=== PATIENT | female | born 1960 | race Caucasian/White ===

== ENCOUNTER 2017-03-11 15:20 | Inpatient (IN) | payer MEDICAID, OTHER ==
[~2017-03-11] VITALS: Ht 177.8 cm; Wt 78.0 kg
[~2017-03-11 15:20] MED LIST: ARIP2TAB3; OLAN2.5T3; VENL50TA2
[2017-03-11 15:45] LABS: BASOPHILS % (AUTO) 0.4 % (0.0-2.0); EOSINOPHILS % (AUTO) 0.2 % (0.0-6.0); HEMATOCRIT 42 % (33-45); HEMOGLOBIN 14.2 g/dL (11.5-14.8); LYMPHOCYTES # (AUTO) 1.9 /CMM (0.8-4.8); LYMPHOCYTES % (AUTO) 19.9 % (20.0-44.0); MEAN CORPUSCULAR HEMOGLOBIN 29 PG (26.0-33.0); MEAN CORPUSCULAR HGB CONC 34 g/dl (31.0-36.0); MEAN CORPUSCULAR VOLUME 85 fL (82-100); MONOCYTES # (AUTO) 0.7 /CMM (0.1-1.30); MONOCYTES % (AUTO) 7.7 % (2.0-12.0); NEUTROPHILS # (AUTO) 7.1 /CMM (1.8-8.9); NEUTROPHILS % (AUTO) 71.8 % (43.0-81.0); PLATELET COUNT (AUTO) 341 /CMM (150-450); RDW COEFFICIENT OF VARIATION 13.1 (11.5-15.0); RED BLOOD CELL COUNT(AUTO) 4.94 MIL/uL (4.0-5.2); WHITE BLOOD COUNT (AUTO) 9.7 K/uL (4.3-11.0)
[2017-03-11 15:55] LABS: CALCIUM, SERUM 10.3 mg/dL (8.5-10.1); CARBON DIOXIDE 24 mmol/L (21-32); CHLORIDE 102 mmol/L (98-107); CREATININE 0.9 mg/dL (0.6-1.3); GLUCOSE 118 mg/dL (74-106); POTASSIUM 4.3 mmol/L (3.5-5.1); SODIUM SERUM 136 mmol/L (136-145); UREA NITROGEN, BLOOD 18 mg/dL (7-18)
[2017-03-11 16:01] LABS: ACETAMINOPHEN 0 ug/ml (10-30); ALANINE AMINOTRANSFERASE 26 U/L (12-78); ALBUMIN 4.2 g/dL (3.4-5.0); ALCOHOL, BLOOD < 3 mg/dL (0-0); ALKALINE PHOSPHATASE 96 U/L (46-116); ASPARTATE AMINOTRANSFERASE 16 U/L (15-37); BILIRUBIN,TOTAL 0.2 mg/dL (0.2-1.0); SALICYLATE 5.7 mg/dL (2.8-20.0); TOTAL PROTEIN, SERUM 8.9 g/dL (6.4-8.2)
[2017-03-11] MEDS ORDERED: ACTIVATED CHARCOAL 25 GM/120 ML TUBE PO STA (16:36)
[2017-03-11] MEDS ORDERED: CHARCOAL/SORBITOL SOLUTION 25 G/120 ML TUBE ONE (16:39)
--- NOTE | 2017-03-11 17:49 | NUR ---
PAGED EPIC FOR PANEL
[2017-03-11 17:52] LABS: APPEARANCE,URINE Cloudy (CLEAR); BILIRUBIN,URINE SMALL (NEGATIVE); BLOOD, URINE Small Ery/uL (NEGATIVE); COLOR,URINE Yellow (YELLOW); KETONES,URINE 15 (NEGATIVE); LEUKOCYTE ESTERASE ,URINE Negative (NEGATIVE); NITRITE, URINE Negative (NEGATIVE); PH,URINE 5.5 (5.0-8.0); PROTEIN,URINE 30 mg/dl (NEGATIVE); UGLUCOSE Negative (NEGATIVE); UROBILINOGEN,URINE 0.2 EU/dL (0.2)
--- NOTE | 2017-03-11 17:59 | NUR ---
CALLED NURSE SUP FOR TELE BED
[2017-03-11 18:12] LABS: BACTERIA,URINE Few /HPF (None Seen); MUCUS,URINE Moderate /LPF (None Seen); SQUAMOUS EPITHELIAL CELL,UR Moderate /HPF (None Seen); URINE AMORPHOUS URATE Moderate /HPF (None Seen); WBC,URINE 0-2 /HPF (0-3)
[2017-03-11] MEDS ORDERED: IV NS 0.9% 1,000 ML IV PRN ×2 (18:15→20:00)
[2017-03-11] MEDS ORDERED: ACETAMINOPHEN 325 MG TABLET PO PRN ×2 (18:30→20:00)
[2017-03-11] MEDS ORDERED: MAGNESIUM HYDROXIDE 30 ML UDC PO PRN ×2 (18:30→20:00)
[2017-03-11] MEDS ORDERED: ONDANSETRON HCL/PF 4 MG/2 ML VIAL IVP PRN ×2 (18:30→20:00)
[2017-03-11] MEDS ORDERED: ZOLPIDEM TARTRATE 5 MG TABLET PO PRN ×2 (18:30→20:00)
[2017-03-11] MEDS ORDERED: ENOXAPARIN SODIUM 40 MG/0.4 ML DISP.SYRIN SQ SCH ×2 (18:30→21:00)
[2017-03-11] MEDS ORDERED: HYDROCODONE/APAP 5/325MG 1 EACH TABLET PO PRN ×2 (18:30→20:00)
[2017-03-11] MEDS ORDERED: MAG HYDROX/AL HYDROX/SIMETH 30 ML UDC PO PRN ×2 (18:30→20:00)
[2017-03-11] MEDS ORDERED: Z GUARD REMEDY 2 OZ OINT TP PRN ×2 (18:30→20:00)
[2017-03-11 18:43] LABS: BASOPHILS # (AUTO) 0.3 /CMM (0.0-0.2); BASOPHILS % (AUTO) 3.1 % (0.0-2.0); EOSINOPHILS # (AUTO) 0.1 /CMM (0.0-0.7); EOSINOPHILS % (AUTO) 0.6 % (0.0-6.0); HEMATOCRIT 43 % (33-45); HEMOGLOBIN 14.7 g/dL (11.5-14.8); LYMPHOCYTES # (AUTO) 2.4 /CMM (0.8-4.8); LYMPHOCYTES % (AUTO) 25.5 % (20.0-44.0); MEAN CORPUSCULAR HEMOGLOBIN 29 PG (26.0-33.0); MEAN CORPUSCULAR HGB CONC 34 g/dl (31.0-36.0); MEAN CORPUSCULAR VOLUME 84 fL (82-100); MONOCYTES # (AUTO) 0.5 /CMM (0.1-1.30); MONOCYTES % (AUTO) 5.3 % (2.0-12.0); NEUTROPHILS # (AUTO) 5.9 /CMM (1.8-8.9); NEUTROPHILS % (AUTO) 65.5 % (43.0-81.0); PLATELET COUNT (AUTO) 396 /CMM (150-450); RDW COEFFICIENT OF VARIATION 13.2 (11.5-15.0); RED BLOOD CELL COUNT(AUTO) 5.12 MIL/uL (4.0-5.2); WHITE BLOOD COUNT (AUTO) 9.2 K/uL (4.3-11.0)
[2017-03-11] MEDS ORDERED: LORAZEPAM INJ 2 MG/ML VIAL IM STA (18:46)
[2017-03-11] MEDS ORDERED: LORAZEPAM INJ 2 MG/ML VIAL ONE (18:47)
[2017-03-11 18:50] LABS: POTASSIUM 3.6 mmol/L (3.5-5.1)
[2017-03-11 18:56] LABS: ALBUMIN 4.5 g/dL (3.4-5.0); BILIRUBIN,TOTAL 0.3 mg/dL (0.2-1.0); TOTAL PROTEIN, SERUM 9.4 g/dL (6.4-8.2)
--- NOTE | 2017-03-11 19:05 | NUR ---
REPORT REC'D FROM ELLI TERAN FOR [facility].
--- NOTE | 2017-03-11 19:20 | NUR ---
PT HAS 18G RAC
--- NOTE | 2017-03-11 19:38 | NUR ---
TELE 327-2
--- NOTE | 2017-03-11 19:52 | NUR ---
REPORT GIVEN TO CECE/RN ON BEHALF OF PRIMARY NURSE NELY.
--- NOTE | 2017-03-11 20:05 | NUR ---
PT TRANSPORTED TO [facility] VIA [facility] PER PROTOCOL.
--- NOTE | 2017-03-11 20:35 | NUR ---
TELE SALES SUPPORT ADMINISTRATOR NOTES GOT CALLED FROM [facility]ISON [facility]OL [facility] FOR FF-UP . [phone]. MONITOR PT AND CALLED THE POISON CONTROL UNIT IF SALISYLATES LEVEL GOING UP .
[2017-03-11 21:00] VITALS: BP 139/84
--- NOTE | 2017-03-11 21:00 | NUR ---
TELE AERODYNAMICS TEACHER INITIAL NOTES ADMIT PT FROM ER VIA [facility] ACCOMPANIED BY ER NURSE AND TECH. DX OF OVERDOSE. PT IS ALERT ORIENTED,AMBULATORY. SKIN WARM AND DRY TO TOUCH WITH VITAL SIGNS FF BP 139/84, PULSE 90.REP 18, TEMP 98.3 AND O2 CINTHYA 99% ORIENTED WHERE SHE AT AND HOW TO USED THE GENNY LIGHT .KEPT HER WARM AND COMFORTABLE. SITTER AT THE BEDSIDE FOR SAFETY.
[2017-03-11 21:08] LABS: CALCIUM, SERUM 10.6 mg/dL (8.5-10.1); CREATININE 1.1 mg/dL (0.6-1.3)
[2017-03-11] MEDS ORDERED: ESZO3TAB27 PO (22:49)
[2017-03-11] MEDS ORDERED: GABA-534 PO (22:49)
[2017-03-11] MEDS ORDERED: trintellix PO (22:49)
[2017-03-11] MEDS ORDERED: LORA1TAB PO (22:49)
[2017-03-11] MEDS ORDERED: LURA40TA PO (22:49)
[2017-03-11] MEDS ORDERED: TRAM50TA2 PO (22:49)
[2017-03-12] VITALS: BP 148/84
[2017-03-12 04:00] VITALS: BP 118/72
--- NOTE | 2017-03-12 07:30 | NUR ---
RN OPENING/TELE NOTES RECEIVED PT. IN BED A&OX4. TELE READING SINUS TACHYCARDIA 87 BPM. BREATHING UNLABORED, AND EVENLY ON ROOM AIR. NO S/S OF ACUTE DISTRESS. PT. DENIES PAIN. PT. DENIES SUICIDAL IDEATION, SELF HARM, AND OR HURTING OTHERS. IV FLUIDS RUNNING AT 75 ML/HR. BED IS IN LOWEST AND LOCKED POSITION. 2 SIDE RAILS UP. INSTRUCTED PT. TO USE CALL LIGHT FOR ASSISTANCE. ALL NEEDS MET. WILL CONTINUE TO ASSESS AND MONITOR .
--- NOTE | 2017-03-12 07:44 | NUR ---
TELE ORDER MANAGER CLOSING NOTES PT AWAKE AND ALERT JUST DONE USING THE RESTROOM. ON STEADY GAIT, DENIES ANY PAIN OR ANY DISCOMFORT. SHE'S CALMED AND FOLLOWED AND INTERACT WELL. NO SIGNS OF SUICIDAL IDEATION NOTED. IVF NS STILL INFUSING ON HER RIGHT FOREARM . TELE SR PER MONITOR. KEPT HER WARM AND COMFORTABLE AT ALL TIMES. SITTER AT THE BEDSIDE FOR SAFETY. ENDORSE TO AM NURSE FOR CONTINUITY OF CARE.
[2017-03-12 08:00] VITALS: BP 131/81
--- NOTE | 2017-03-12 12:52 | NUR ---
Social service consult for drug overdose. Pt. is a 56 year old female who was admitted to [facility] for a drug overdose. [facility]IVER and adult protective caseworker Deborah York met with pt. bedside. Pt. is alert and oriented x 3. Pt. was not very upfront about her psychiatric diagnosis and medications. Initially when SW asked pt. if she takes any psychiatric medications, pt. denied. However, upon speaking to the broker in charge pt. does takes Trintellix, a psychiatric medication. Pt. does see a psychiatrist and and therapist. Pt. states she did not intentionally overdose and doesn't seem to remember much from what transpired yesterday. Pt. denies suicidal and homicidal ideations and visual/auditory hallucinations at this time. Per H&p report, pt. has a history of Depression and Anxiety. Pt. denies using drugs and alcohol, however states she does use marijuana. Pt. resides with her mother and ex-boyfriend Benny Kirkpatrick at [address] [place] [address]. [place] [id number]. Benny is her emergency contact and can be reached at . Pt. is ambulatory and independent with her ADL's. Pt. is unemployed at this time. Pt. informed SW and adult protective caseworker Deborah York that Benny will pick her up from the hospital at time of discharge. No other social service needs are requested at this time. SW is available if needed.
--- NOTE | 2017-03-12 15:50 | NUR ---
VEHICLE CARE SPECIALIST NOTES PT. LEFT IN MEDICALLY STABLE CONDITION, PT. DENIES SUICIDAL IDEATION, SELF HARM, HARM TO OTHERS, AND NO SIGNS OF VERBALIZATION OF HALLUCINATIONS. PT. IS A&OX4. PT. PT. LEFT ALONG SIDE WITH FAMILY. DISCHARGE INSTRUCTIONS WERE PROVIDED, WITH EDUCATIONS. ID BAND, AND IV WAS REMOVED WITHOUT COMPLICATIONS. MEDICATIONS WERE RETURNED TO PT. DISCHARGE PACKET WAS GIVEN TO PT. ALL QUESTIONS ANSWERED. BELONGINGS LIST CHECKED AND SIGNED.
== END 2017-03-12 15:45 | disposition home or self-care (01) | DRG 812 ==
LOC: ER 15:22 → TELE 20:09 → MED 03-12 09:37
PROVIDERS: ADMIT Internal Medicine; ATTEND Internal Medicine
DX: T43.211A Poisoning by selective serotonin and norepinephrine reuptake inhibitors, accidental (unintentional), initial encounter (principal); G92 Toxic encephalopathy; F32.9 Major depressive disorder, single episode, unspecified; F41.9 Anxiety disorder, unspecified; Y92.009 Unspecified place in unspecified non-institutional (private) residence as the place of occurrence of the external cause; Z90.710 Acquired absence of both cervix and uterus; E78.5 Hyperlipidemia, unspecified; Z79.899 Other long term (current) drug therapy; R45.851 Suicidal ideations; G47.00 Insomnia, unspecified
CPT/HCPCS: 36415; 80048-TC; 80053-TC; 80076-TC; 80305; 81000-TC; 84703-TC; 85025-TC; A4606; G0480; J1650; J2060; J2405; J7030; Z7610

== ENCOUNTER 2017-06-18 07:17 | Emergency (ER) | payer OTHER ==
[~2017-06-18] VITALS: Ht 175.3 cm; Wt 80.3 kg
[~2017-06-18 07:17] MED LIST changes: +ESZO3TAB27 PO; +GABA-534 PO; +LORA1TAB PO; +LURA40TA PO; +TRAM50TA2 PO; +trintellix PO
--- NOTE | 2017-06-18 07:17 | NUR ---
BIBRA 102 FROM HOME C/O POSSIBLE OVERDOSE TO UNKNOWN ETIOLOGY, LETHARGIC UPON ARRIVAL, [id number] IN THE FIELD, [id number]=[id number]. SLURRED SPEACH, A/OX 3. BREATHING EVEN AND UNLABORED. NO SOB, NAD, VITALS STABLE. NO NEURO DEFICITS NOTED, AWAITING MD ORDERS.
--- NOTE | 2017-06-18 07:17 | NUR ---
Paul franco in ED - 06/18/17 at 0746 by SUSAN ACTIVATED CODE STROKE.
[2017-06-18] MEDS ORDERED: NALOXONE PREFILLED SYRINGE 2 MG/2 ML SYRINGE ONE (07:26)
--- NOTE | 2017-06-18 07:28 | NUR ---
AT BEDSIDE FOR EVAL.
--- NOTE | 2017-06-18 07:29 | NUR ---
SECOND IV STARTED ON RAC, 20G. BLOOD DRAWN AND SENT TO LAB.
[2017-06-18] MEDS ORDERED: IV NS 0.9% 1,000 ML BAG IV ONE (07:30)
[2017-06-18] MEDS ORDERED: NALOXONE PREFILLED SYRINGE 2 MG/2 ML SYRINGE IV ONE (07:30)
--- NOTE | 2017-06-18 07:33 | NUR ---
ACTIVATED CODE STROKE.
--- NOTE | 2017-06-18 07:35 | NUR ---
PATIENT TAKEN TO CT VIA STRETCHER.
--- NOTE | 2017-06-18 07:35 | NUR ---
Paul franco in [facility] - 06/18/17 at [address]A MD [address] VIA STRETCHER.
[2017-06-18] MEDS ORDERED: IV NS 0.9% 500 ML IV ONE (07:44)
[2017-06-18] MEDS ORDERED: CT SWABBABLE VALVE TRANS SET 1 EA INFUS.SET MC ONE (07:44)
[2017-06-18] MEDS ORDERED: IOHEXOL-350 100 ML VIAL IV ONE (07:44)
[2017-06-18 07:48] LABS: BASOPHILS % (AUTO) 0.4 % (0.0-2.0); EOSINOPHILS % (AUTO) 0.8 % (0.0-6.0); HEMATOCRIT 33 % (33-45); HEMOGLOBIN 11.5 g/dL (11.5-14.8); LYMPHOCYTES # (AUTO) 2.1 /CMM (0.8-4.8); LYMPHOCYTES % (AUTO) 36.8 % (20.0-44.0); MEAN CORPUSCULAR HGB CONC 35 g/dl (31.0-36.0); MEAN CORPUSCULAR VOLUME 85 fL (82-100); MONOCYTES # (AUTO) 0.3 /CMM (0.1-1.30); MONOCYTES % (AUTO) 6.1 % (2.0-12.0); NEUTROPHILS # (AUTO) 3.2 /CMM (1.8-8.9); NEUTROPHILS % (AUTO) 55.9 % (43.0-81.0); PLATELET COUNT (AUTO) 206 /CMM (150-450); RDW COEFFICIENT OF VARIATION 15.7 (11.5-15.0); RED BLOOD CELL COUNT(AUTO) 3.92 MIL/uL (4.0-5.2); WHITE BLOOD COUNT (AUTO) 5.7 K/uL (4.3-11.0)
--- NOTE | 2017-06-18 07:52 | NUR ---
PATIENT RETURNED FROM CT IN STABLE CONDITION.
[2017-06-18 08:00] LABS: CALCIUM, SERUM 9.4 mg/dL (8.5-10.1); CARBON DIOXIDE 24 mmol/L (21-32); CHLORIDE 107 mmol/L (98-107); CREATININE 0.8 mg/dL (0.6-1.3); GLUCOSE 116 mg/dL (74-106); POTASSIUM 3.8 mmol/L (3.5-5.1); SODIUM SERUM 141 mmol/L (136-145); UREA NITROGEN, BLOOD 12 mg/dL (7-18)
[2017-06-18 08:06] LABS: INR 0.92 (0.87-1.13)
[2017-06-18 08:09] LABS: TROPONIN I < 0.017 ng/mL (0.00-0.056)
--- NOTE | 2017-06-18 08:20 | NUR ---
RADIOLOGY CONTACTED DR. BATES FOR CT RESULTS. PER DR. BATES, BOTH CT AND CTA ARE CLEAR.
[2017-06-18 08:59] LABS: CHOLESTEROL 285 mg/dL (<200); HDL CHOLESTEROL 70 mg/dL (40-60); LDL 176 mg/dL (0-99); TRIGLYCERIDES 500 mg/dL (30-150)
[2017-06-18] MEDS ORDERED: ASPIRIN 325 MG TABLET PO ONE (09:00)
[2017-06-18 09:03] LABS: ACETAMINOPHEN 0 ug/ml (10-30); ALANINE AMINOTRANSFERASE 19 U/L (12-78); ALBUMIN 3.8 g/dL (3.4-5.0); ALCOHOL, BLOOD < 3 mg/dL (0-0); ALKALINE PHOSPHATASE 87 U/L (46-116); ASPARTATE AMINOTRANSFERASE 11 U/L (15-37); BILIRUBIN,TOTAL 0.2 mg/dL (0.2-1.0); SALICYLATE 5.4 mg/dL (2.8-20.0); TOTAL PROTEIN, SERUM 7.1 g/dL (6.4-8.2)
[2017-06-18] MEDS ORDERED: VORT20TA PO (09:04)
[2017-06-18 09:08] LABS: APPEARANCE,URINE CLEAR (CLEAR); BILIRUBIN,URINE NEGATIVE (NEGATIVE); BLOOD, URINE NEGATIVE Ery/uL (NEGATIVE); COLOR,URINE YELLOW (YELLOW); KETONES,URINE NEGATIVE (NEGATIVE); LEUKOCYTE ESTERASE ,URINE NEGATIVE (NEGATIVE); NITRITE, URINE NEGATIVE (NEGATIVE); PH,URINE 8.5 (5.0-8.0); PROTEIN,URINE NEGATIVE (NEGATIVE); UGLUCOSE NEGATIVE (NEGATIVE); UROBILINOGEN,URINE 0.2 EU/dL (0.2)
[2017-06-18] MEDS ORDERED: ASPIRIN 325 MG TABLET ONE (09:12)
--- NOTE | 2017-06-18 09:15 | NUR ---
MD INFORMED PATIENT DID NOT PASS SWALLOW EVAL D/T SLURRED SPEACH. DR. BATES STATED TO TRY GIVING SMALL SIP OF WATER, IF TOLERATING WELL, OKAY TO GIVE ASPIRIN PO.
--- NOTE | 2017-06-18 09:20 | NUR ---
PATIENT GIVEN ASPIRIN PO, ABLE TO SWALLOW WELL, WITH NO COUGHING NOTED.
[2017-06-18 09:27] LABS: THYROID STIMULATING HORMONE 1.251 uIU/mL (0.358-3.74)
--- NOTE | 2017-06-18 09:55 | NUR ---
PATIENT ALERT AND ORIENTED AT THIS TIME, ASKING TO LEAVE. MD STATING PATIENT IS PENDING ADMISSION. PATIENT REFUSING TO STAY, WILL F/U WITH MD.
--- NOTE | 2017-06-18 10:15 | NUR ---
PATIENT REFUSING TO STAY IN [facility]. RIPPING OFF ALL LINES AND ASKING TO LEAVE IMMEDIATELY. DR. BATES INFORMED, STATED SHE CAN LEAVE AMA. PATIENT SIGNED AMA FORM, DESPITE EXPLANATION OF RISKS AND CONSEQUENCES. ALL IV'S REMOVED, SITES SECURED WITH GAUZE AND TAPE. FAMILY MEMBERS NOTIFIED. PATIENT ASSISTED TO WAITING ROOM, LEFT AGAINST MEDICAL ADVICE.
[2017-06-18 10:47] VITALS: BP 146/81
== END 2017-06-18 10:15 | disposition left against medical advice (07) ==
LOC: ER 07:18
DX: R47.1 Dysarthria and anarthria (principal); Z79.82 Long term (current) use of aspirin
CPT/HCPCS: 36415; 70450; 70496; 70498; 71045; 80048; 80061; 80076; 80305; 80329; 81001; 82962; 84443; 84484; 85025; 85730; 93005; 96360; 96374; 99285; A4606; G0480 ×2; J2310; J7030; J7040; Q9967; Z7610; 81000-TC